=== PATIENT | female | born 1930 | race Caucasian/White ===

== ENCOUNTER 2019-06-06 11:32 | Inpatient (IN) | payer MEDICARE, OTHER ==
[2019-06-06 13:13] LABS: ADD MAN DIFF? NO
[2019-06-06 13:15] LABS: BASOPHIL # 0.1 10^3/ul (0.0-0.1); BASOPHILS % 0.8 % (0.0-2.0); EOSINOPHILS # 0.1 10^3/ul (0.0-0.5); EOSINOPHILS % 1.2 % (0.0-7.0); HEMOGLOBIN 14.1 g/dl (12.0-16.0); LYMPHOCYTES # 1.6 10^3/ul (0.8-2.9); LYMPHOCYTES % 24.7 % (15.0-51.0); MEAN CORPUSCULAR HEMOGLOBIN 28.4 pg (29.0-33.0); MEAN CORPUSCULAR HGB CONC 32.8 g/dl (32.0-37.0); MEAN CORPUSCULAR VOLUME 86.7 fl (82.0-101.0); MEAN PLATELET VOLUME 9.3 fl (7.4-10.4); MONOCYTE # 0.6 10^3/ul (0.3-0.9); MONOCYTES % 8.8 % (0.0-11.0); NEUTROPHIL # 4.2 10^3/ul (1.6-7.5); NEUTROPHILS % 64.2 % (39.0-77.0); PLATELET COUNT 263 10^3/UL (140-415); RED BLOOD COUNT 4.96 10^6/ul (4.20-5.40); RED CELL DISTRIBUTION WIDTH 13.6 % (11.5-14.5)
[2019-06-06 13:15] LABS: WHITE BLOOD COUNT 6.6 10^3/ul (4.8-10.8)
[2019-06-06 13:33] LABS: ALANINE AMINOTRANSFERASE 35 IU/L (13-69); ALBUMIN 4.5 g/dl (3.3-4.9); ALKALINE PHOSPHATASE 125 IU/L (42-121); ANION GAP 10 (5-13); ASPARTATE AMINO TRANSFERASE 22 IU/L (15-46); BILIRUBIN,INDIRECT 0.5 mg/dl (0-1.1); BILIRUBIN,TOTAL 0.5 mg/dl (0.2-1.3); BLOOD UREA NITROGEN 21 mg/dl (7-20); CALCIUM 9.8 mg/dl (8.4-10.2); CARBON DIOXIDE 26 mmol/L (21-31); CHLORIDE 106 mmol/L (97-110); CREATININE 0.85 mg/dl (0.44-1.00); GLUCOSE 205 mg/dl (70-220); POTASSIUM 4.4 mmol/L (3.5-5.1); SODIUM 142 mmol/L (135-144); TOTAL PROTEIN 7.5 g/dl (6.1-8.1)
[2019-06-06 13:45] LABS: B-TYPE NATRIURETIC PEPTIDE 1680 PG/ML (0-450); TROPONIN-I < 0.012 ng/ml (0.000-0.120)
[2019-06-06] MEDS: ASPIRIN 81 MG TAB PO (16:27)
[2019-06-06] MEDS: FUROSEMIDE 20 MG TAB PO (16:27)
[2019-06-06 19:07] LABS: ADD UMIC YES; UR ASCORBIC ACID NEGATIVE (NEGATIVE); UR BACTERIA FEW /HPF (NONE SEEN); UR BILIRUBIN (Dip) NEGATIVE (NEGATIVE); UR BLOOD (Dip) NEGATIVE (NEGATIVE); UR CLARITY CLEAR (CLEAR); UR COLOR YELLOW (YELLOW); UR GLUCOSE (Dip) NEGATIVE (NEGATIVE); UR KETONES (Dip) NEGATIVE (NEGATIVE); UR LEUKOCYTE ESTERASE (Dip) 2+ Leu/ul (NEGATIVE); UR NITRITE (Dip) NEGATIVE (NEGATIVE); UR RBC 1 /HPF (0-5); UR SPECIFIC GRAVITY (Dip) 1.015 (1.003-1.030); UR TOTAL PROTEIN (Dip) NEGATIVE (NEGATIVE); UR UROBILINOGEN (Dip) NEGATIVE (NEGATIVE); UR WBC 5 /HPF (0-5)
[2019-06-07] MEDS ORDERED: ONDANSETRON 4 MG INJ IV (00:30)
[2019-06-07 01:19] LABS: MAGNESIUM 2.1 mg/dl (1.7-2.5)
[2019-06-07] MEDS: PANTOPRAZOLE (EC) 40 MG TAB PO (06:00)
[2019-06-07] MEDS: ACCU-CHEK XX ×4 (08:30→21:00)
[2019-06-07] MEDS: metFORMIN 500 MG TAB PO ×2 (08:46→17:22)
[2019-06-07] MEDS: REPAGLINIDE 1 MG TAB PO ×3 (08:46→17:22)
[2019-06-07] MEDS: CIPROFLOXACIN 400MG/D5W 200 ML IVPB ×2 (08:55→17:22)
[2019-06-07] MEDS ORDERED: FUROSEMIDE 20 MG TAB PO (09:00)
[2019-06-07] MEDS ORDERED: ENALAPRIL 2.5 MG TAB PO (09:00)
[2019-06-07] MEDS: INSULIN ASPART [NOVOLOG] 3 ML PEN SC ×4 (09:19→21:00)
[2019-06-07 10:11] LABS: ADD MAN DIFF? NO
[2019-06-07 10:13] LABS: BASOPHILS % 0.5 % (0.0-2.0); EOSINOPHILS # 0.1 10^3/ul (0.0-0.5); EOSINOPHILS % 1.3 % (0.0-7.0); HEMOGLOBIN 13.8 g/dl (12.0-16.0); LYMPHOCYTES # 1.3 10^3/ul (0.8-2.9); LYMPHOCYTES % 21.9 % (15.0-51.0); MEAN CORPUSCULAR HEMOGLOBIN 28.4 pg (29.0-33.0); MEAN CORPUSCULAR HGB CONC 32.1 g/dl (32.0-37.0); MEAN CORPUSCULAR VOLUME 88.5 fl (82.0-101.0); MEAN PLATELET VOLUME 9.6 fl (7.4-10.4); MONOCYTE # 0.5 10^3/ul (0.3-0.9); MONOCYTES % 7.6 % (0.0-11.0); NEUTROPHIL # 4.1 10^3/ul (1.6-7.5); NEUTROPHILS % 68.4 % (39.0-77.0); PLATELET COUNT 239 10^3/UL (140-415); RED BLOOD COUNT 4.86 10^6/ul (4.20-5.40); RED CELL DISTRIBUTION WIDTH 13.6 % (11.5-14.5)
[2019-06-07 10:13] LABS: WHITE BLOOD COUNT 6.1 10^3/ul (4.8-10.8)
[2019-06-07 10:31] LABS: ALANINE AMINOTRANSFERASE 29 IU/L (13-69); ALBUMIN 4.4 g/dl (3.3-4.9); ALBUMIN/GLOBULIN RATIO 1.76; ALKALINE PHOSPHATASE 116 IU/L (42-121); ANION GAP 9 (5-13); ASPARTATE AMINO TRANSFERASE 23 IU/L (15-46); BILIRUBIN,INDIRECT 0.7 mg/dl (0-1.1); BILIRUBIN,TOTAL 0.7 mg/dl (0.2-1.3); BLOOD UREA NITROGEN 22 mg/dl (7-20); CALCIUM 9.9 mg/dl (8.4-10.2); CARBON DIOXIDE 29 mmol/L (21-31); CHLORIDE 102 mmol/L (97-110); CREATININE 0.85 mg/dl (0.44-1.00); GLUCOSE 284 mg/dl (70-220); POTASSIUM 4.1 mmol/L (3.5-5.1); SODIUM 140 mmol/L (135-144); TOTAL PROTEIN 6.9 g/dl (6.1-8.1)
[2019-06-07 10:43] LABS: TROPONIN-I < 0.012 ng/ml (0.000-0.120)
[2019-06-07] MEDS: ENALAPRIL 5 MG TAB PO (12:09)
[2019-06-07] MEDS: ASPIRIN 81 MG TAB PO (12:09)
[2019-06-07] MEDS: ATENOLOL 50 MG TAB PO ×2 (12:10→21:22)
[2019-06-07] MEDS: ATORVASTATIN 40 MG TAB PO (21:22)
[2019-06-08] MEDS: PANTOPRAZOLE (EC) 40 MG TAB PO (06:04)
[2019-06-08] MEDS: ACCU-CHEK XX ×2 (07:00→11:54)
[2019-06-08] MEDS: metFORMIN 500 MG TAB PO (08:00)
[2019-06-08] MEDS: REPAGLINIDE 1 MG TAB PO ×2 (08:01→11:55)
[2019-06-08] MEDS: CIPROFLOXACIN 400MG/D5W 200 ML IVPB (08:01)
[2019-06-08] MEDS: INSULIN ASPART [NOVOLOG] 3 ML PEN SC ×2 (08:16→12:02)
[2019-06-08] MEDS: ASPIRIN 81 MG TAB PO (08:19)
[2019-06-08] MEDS: ENALAPRIL 5 MG TAB PO (08:20)
[2019-06-08] MEDS: ATENOLOL 50 MG TAB PO (08:21)
== END 2019-06-08 13:20 | disposition home or self-care (01) | DRG 309 ==
LOC: E/R 11:32 → 6WM 16:18
PROVIDERS: Family Medicine
DX: I47.1 Supraventricular tachycardia (principal); N39.0 Urinary tract infection, site not specified; F03.90 Unspecified dementia, unspecified severity, without behavioral disturbance, psychotic disturbance, mood disturbance, and anxiety; I48.0 Paroxysmal atrial fibrillation; D63.8 Anemia in other chronic diseases classified elsewhere; R07.9 Chest pain, unspecified; I10 Essential (primary) hypertension; Z79.4 Long term (current) use of insulin; I25.10 Atherosclerotic heart disease of native coronary artery without angina pectoris; E78.5 Hyperlipidemia, unspecified; F41.9 Anxiety disorder, unspecified; M19.90 Unspecified osteoarthritis, unspecified site; I16.0 Hypertensive urgency; E11.65 Type 2 diabetes mellitus with hyperglycemia
CPT/HCPCS: 71045; 80053; 81001; 82962; 83735; 83880; 84484; 85025; 93005; 93306; 99285-25